=== PATIENT | male | born 1950 | race Caucasian/White ===

== ENCOUNTER → 2017-03-12 | Outpatient (CLI) | payer MEDICARE ==
[~2017-03-12] MED LIST: ACET-1770 PR; ALBU1.25 NEB; ALLO100T30 PO; ASPI-515 PO; ASPI-621 PO; ATOR10TA PO; ATOR10TA9 PO; CARV6.252 PO; CHOL500014 PO; CHOL500015 PO; DAPT500V6 IV; DIAZ5TAB PO; DIAZ5TAB4 PO; DOCU-30 PO; DOXY100T PO; ENAL2.5T32 IV; ENOX100S5 SQ; ENOX80SY5 SQ; FENT1PAT75 TD; FURO-92 PO; FURO40TA6 PO; GABA100C PO; GABA300C10 PO; GABA600T2 PO; HYDR-3138 PO; INSU100C SQ-INSULIN; INSU100C5 SQ-INSULIN; INSU100I11 SQ; INSU100I13 SQ; INSU100I29 SQ; INSU100V5 SQ-INSULIN; INSU100V8 SQ; LABE5VIA13 IV; LINA5TAB PO; LORA-446 PO; LORA2ORA2 IV; LORA2TAB99 PO; MAGN400T26 PO; MAGN400T36 PO; MAGNESIUM PO; MAGNESSIUM PO; METALAZONE PO; METH750T87 PO; METO5TAB5 PO; METR500T PO; MINO10TA PO; MORP-52 PO; MORP15TA PO; MORP15TA3 PO; MORP1VIA2 IV; NICO1PAT5 TD; OXYC-229 PO; OXYC10TA6 PO; OXYC1TAB9 PO; OXYC30TA66 PO; OXYC5TAB3 PO; PANT40TA3 PO; PANT40TA5 PO; PANT40VI IV; PHOS250T PO; PIPE3.375 IV; POTA10TA PO; POTA10TA11 PO; POTA20PA8 PO; PRAM0.5T5 PO; PRAM1TAB PO; PRAM1TAB5 PO; PRAMIPEXOLE PO; PRED5TAB PO; RIVA10TA PO; SPIR100T2 PO; SULF1TAB24 PO; VALS160T3 PO; WARF10TA6 PO-COUM; WARF3TAB7 PO; WARF3TAB7 PO-COUM; WARF4TAB7 PO; WARF6TAB PO; WARF6TAB7 PO; WARFARIN PO; [UNRECOGNIZED DRUG - CODE] PO; [UNRECOGNIZED DRUG - REMARK]; [UNRECOGNIZED DRUG - REMARK] PO
== END | disposition home or self-care (01) ==
LOC: CVU 14:08
PROVIDERS: ATTEND Internal Medicine Infectious Disease
DX: I72.4 Aneurysm of artery of lower extremity (principal); I77.1 Stricture of artery; T84.7XXA Infection and inflammatory reaction due to other internal orthopedic prosthetic devices, implants and grafts, initial encounter; E11.9 Type 2 diabetes mellitus without complications; E78.5 Hyperlipidemia, unspecified; I25.10 Atherosclerotic heart disease of native coronary artery without angina pectoris; Z72.0 Tobacco use; Z85.828 Personal history of other malignant neoplasm of skin
CPT/HCPCS: 93922; 93925

== ENCOUNTER 2017-04-22 22:04 | Emergency (ER) | payer MEDICARE ==
[~2017-04-22] VITALS: Ht 172.7 cm; Wt 103.0 kg
[~2017-04-22 22:04] MED LIST changes: -CHOL500014 PO; +CHOL500045 PO; +DOCU-131 PO; -DOCU-30 PO; -HYDR-3138 PO; +HYDR-3237 PO; +NICO1PAT16 TD; -NICO1PAT5 TD; -OXYC-229 PO; +OXYC-307 PO; +POTA20PA25 PO; -POTA20PA8 PO
[2017-04-22 22:11] VITALS: BP 137/80
== END 2017-04-22 23:39 | disposition home or self-care (01) ==
LOC: ED 23:30
DX: T81.31XA Disruption of external operation (surgical) wound, not elsewhere classified, initial encounter (principal); I25.10 Atherosclerotic heart disease of native coronary artery without angina pectoris; I25.2 Old myocardial infarction; I11.0 Hypertensive heart disease with heart failure; I50.9 Heart failure, unspecified; Y92.89 Other specified places as the place of occurrence of the external cause
CPT/HCPCS: 99282

== ENCOUNTER 2017-05-13 12:16 | Emergency (ER) | payer MEDICARE ==
[~2017-05-13] VITALS: Ht 172.7 cm; Wt 108.0 kg
[2017-05-13] MEDS ORDERED: SODIUM CHLORIDE FLUSH 10ML SYR IVF ONE (13:00)
[2017-05-13] MEDS ORDERED: MECLIZINE CHEWABLE 25 MG TAB PO ONE (13:00)
[2017-05-13] MEDS ORDERED: SODIUM CHLORIDE 0.9% 1,000ML IVBOLUS ONE (13:00)
[2017-05-13 13:19] LABS: HEMATOCRIT 41.9 % (39.2-51.8); HEMOGLOBIN 14.3 g/dL (13.7-18.0); WHITE BLOOD COUNT 7.7 x10^3/uL (3.4-10)
[2017-05-13] MEDS ORDERED: MECLIZINE CHEWABLE 25 MG TAB ONE (13:19)
[2017-05-13 13:32] LABS: ASPARTATE AMINO TRANSFERASE 15 U/L (15-37); BLOOD UREA NITROGEN 30 mg/dL (7-18)
[2017-05-13 15:42] VITALS: BP 140/86
== END 2017-05-13 15:44 | disposition home or self-care (01) ==
LOC: ED 14:35
DX: R42 Dizziness and giddiness (principal); R60.0 Localized edema; I13.0 Hypertensive heart and chronic kidney disease with heart failure and stage 1 through stage 4 chronic kidney disease, or unspecified chronic kidney disease; E11.22 Type 2 diabetes mellitus with diabetic chronic kidney disease; N18.9 Chronic kidney disease, unspecified; I50.9 Heart failure, unspecified; E78.5 Hyperlipidemia, unspecified; I25.2 Old myocardial infarction; I25.10 Atherosclerotic heart disease of native coronary artery without angina pectoris; F17.200 Nicotine dependence, unspecified, uncomplicated; Z85.51 Personal history of malignant neoplasm of bladder; Z79.4 Long term (current) use of insulin
CPT/HCPCS: 36415; 70450; 71010; 80053; 83880; 85025; 93005; 96360; 96361; 99285; J7030

== ENCOUNTER 2017-05-23 19:51 | Emergency (ER) | payer MEDICARE ==
[~2017-05-23] VITALS: Ht 172.7 cm; Wt 106.0 kg
[2017-05-23] MEDS ORDERED: INSU100V12 SQ (20:33)
[2017-05-23 21:08] VITALS: BP 151/84
== END 2017-05-23 21:41 | disposition home or self-care (01) ==
LOC: ED 21:00
DX: S46.011A Strain of muscle(s) and tendon(s) of the rotator cuff of right shoulder, initial encounter (principal); E78.5 Hyperlipidemia, unspecified; E66.9 Obesity, unspecified; I11.0 Hypertensive heart disease with heart failure; I50.9 Heart failure, unspecified; X50.1XXA Overexertion from prolonged static or awkward postures, initial encounter; Y93.H3 Activity, building and construction; Y92.89 Other specified places as the place of occurrence of the external cause; Y99.9 Unspecified external cause status; I25.2 Old myocardial infarction
CPT/HCPCS: 29105; 99284

== ENCOUNTER 2017-08-20 15:08 | Emergency (ER) | payer MEDICARE ==
[~2017-08-20] VITALS: Ht 172.7 cm; Wt 104.5 kg
[~2017-08-20 15:08] MED LIST changes: +INSU100V12 SQ; +NICO-487 TD; -NICO1PAT16 TD
[2017-08-20] MEDS ORDERED: SODIUM CHLORIDE FLUSH 10ML SYR IVF ONE (15:30)
[2017-08-20] MEDS ORDERED: CHOL2000 PO (15:59)
[2017-08-20] MEDS ORDERED: BUME2TAB PO (15:59)
[2017-08-20] MEDS ORDERED: LISI2.5T PO (15:59)
[2017-08-20] MEDS ORDERED: DIAZ5TAB4 PO (15:59)
[2017-08-20] MEDS ORDERED: MAGN84TA6 PO (15:59)
[2017-08-20 16:06] LABS: BLOOD UREA NITROGEN 74 mg/dL (7-18)
[2017-08-20 16:09] LABS: ASPARTATE AMINO TRANSFERASE 21 U/L (15-37)
[2017-08-20 16:29] LABS: HEMATOCRIT 44.7 % (39.2-51.8); HEMOGLOBIN 14.9 g/dL (13.7-18.0); WHITE BLOOD COUNT 8.1 x10^3/uL (3.4-10)
[2017-08-20] MEDS ORDERED: DIAZEPAM 5 MG TABLET PO ONE (18:00)
[2017-08-20] MEDS ORDERED: DIAZEPAM 5 MG TABLET ONE (18:06)
[2017-08-20 20:26] VITALS: BP 104/79
== END 2017-08-20 20:28 | disposition home or self-care (01) ==
LOC: ED 17:20
DX: M54.41 Lumbago with sciatica, right side (principal); E78.5 Hyperlipidemia, unspecified; E66.9 Obesity, unspecified; I25.10 Atherosclerotic heart disease of native coronary artery without angina pectoris; E11.40 Type 2 diabetes mellitus with diabetic neuropathy, unspecified; I11.0 Hypertensive heart disease with heart failure; I50.9 Heart failure, unspecified; Z87.891 Personal history of nicotine dependence; Z98.890 Other specified postprocedural states
CPT/HCPCS: 36415; 72110; 72148; 80053; 85025; 85610; 99285

== ENCOUNTER 2017-12-12 10:36 | Emergency (ER) | payer MEDICARE ==
[~2017-12-12] VITALS: Ht 172.7 cm; Wt 103.1 kg
[~2017-12-12 10:36] MED LIST changes: +BUME2TAB PO; +CHOL2000 PO; +LISI2.5T PO; +MAGN84TA6 PO; +WARF3TAB52 PO; +WARF3TAB52 PO-COUM; -WARF3TAB7 PO; -WARF3TAB7 PO-COUM
[2017-12-12 10:38] VITALS: BP 163/93
== END 2017-12-12 13:18 | disposition home or self-care (01) ==
LOC: ED 12:50
DX: I80.01 Phlebitis and thrombophlebitis of superficial vessels of right lower extremity (principal); I73.9 Peripheral vascular disease, unspecified; E11.9 Type 2 diabetes mellitus without complications; E78.5 Hyperlipidemia, unspecified; I25.10 Atherosclerotic heart disease of native coronary artery without angina pectoris; I25.2 Old myocardial infarction; I50.9 Heart failure, unspecified; I11.0 Hypertensive heart disease with heart failure; Z85.51 Personal history of malignant neoplasm of bladder; Z86.718 Personal history of other venous thrombosis and embolism
CPT/HCPCS: 99284

== ENCOUNTER 2017-12-20 15:55 | Inpatient (IN) | payer MEDICARE ==
[~2017-12-20] VITALS: Ht 172.7 cm; Wt 102.5 kg
[~2017-12-20 15:55] MED LIST changes: +WARF10TA43 PO-COUM; -WARF10TA6 PO-COUM; +WARF4TAB65 PO; -WARF4TAB7 PO; +WARF6TAB47 PO; -WARF6TAB7 PO; +WARFARIN 3 MG TABLET PO-COUM ONE
[2017-12-20] MEDS ORDERED: MORPHINE SULFATE 4 MG/ML, 1ML ONE (16:51)
[2017-12-20] MEDS ORDERED: ONDANSETRON ODT 4 MG ONE (16:51)
[2017-12-20] MEDS ORDERED: MORPHINE SULFATE 4 MG/ML, 1ML IVPush PRN (17:00)
[2017-12-20] MEDS ORDERED: ONDANSETRON ODT 4 MG PO ONE (17:00)
[2017-12-20] MEDS ORDERED: CHOL100012 PO (17:02)
[2017-12-20] MEDS ORDERED: WARF3TAB52 PO (17:02)
[2017-12-20] MEDS ORDERED: INSU100I28 SQ (17:02)
[2017-12-20] MEDS ORDERED: LISI2.5T PO (17:02)
[2017-12-20 17:07] LABS: BASOPHILS # (AUTO) 0.12 x10^3/uL (0-0.1); BASOPHILS % (AUTO) 1 % (0-1); EOSINOPHILS # (AUTO) 0.24 x10^3/uL (0-0.4); EOSINOPHILS % (AUTO) 3 % (1-7); LYMPHOCYTES # (AUTO) 2.19 x10^3/uL (1-3.4); LYMPHOCYTES % (AUTO) 25 % (22-44); MD NO; MEAN CORPUSCULAR HEMOGLOBIN 30.8 pg (27.5-34.5); MEAN CORPUSCULAR VOLUME 93.2 fL (81-97); MEAN PLATELET VOLUME 8.9 fL (7.4-10.4); MONOCYTES # (AUTO) 0.74 x10^3/uL (0.2-0.8); MONOCYTES % (AUTO) 8 % (2-9); NEUTROPHILS # (AUTO) 5.67 x10^3/uL (1.8-6.8); NEUTROPHILS % (AUTO) 63 % (42-75); PLATELET COUNT 183 x10^3/uL (130-400); RED BLOOD COUNT 4.72 x10^6/uL (4.38-5.82); RED CELL DISTRIBUTION WIDTH 17.4 % (9.4-14.8)
[2017-12-20 17:15] LABS: INTERNATIONAL NORMALIZED RATIO 2.45 (0.93-1.1); PROTHROMBIN TIME 24.8 Seconds (9.6-11.5)
[2017-12-20 17:17] LABS: ALANINE AMINOTRANSFERASE 18 U/L (12-78); ALBUMIN 3.5 g/dL (3.4-5.0); ANION GAP 7 mmol/L (5-15); CALCIUM 9.1 mg/dL (8.5-10.1); CHLORIDE 103 mmol/L (98-107); CREATININE 3.18 mg/dL (0.7-1.3)
[2017-12-20 17:22] LABS: ALKALINE PHOSPHATASE 86 U/L (45-117); BILIRUBIN,TOTAL 0.3 mg/dL (0.2-1.0); TROPONIN I < 0.015 ng/mL (0.000-0.045)
[2017-12-20] MEDS ORDERED: SODIUM BICARB 8.4%, 50ML SYRINGE IVPush ONE (18:00)
[2017-12-20] MEDS ORDERED: INSULIN REGULAR 100 UNITS/ML, 3ML VIAL IVPush ONE ×2 (18:00→21:00)
[2017-12-20] MEDS ORDERED: SODIUM POLY SULFONATE UDC 15 GM/60 ML PO ONE (18:00)
[2017-12-20] MEDS ORDERED: HYDROmorphone 1 MG/ML, 1ML IV PRN (18:00)
[2017-12-20] MEDS ORDERED: DEXTROSE 50%, 50ML SYRINGE IVPush ONE ×2 (18:00→21:00)
[2017-12-20] MEDS ORDERED: SODIUM BICARB 8.4%, 50ML SYRINGE ONE (18:07)
[2017-12-20] MEDS ORDERED: SODIUM POLYSTYRENE SULFONATE ORAL SUSP ONE (18:07)
[2017-12-20] MEDS ORDERED: DEXTROSE 50%, 50ML SYRINGE ONE (18:07)
[2017-12-20] MEDS ORDERED: HYDROmorphone 2 MG/ML, 1ML ONE (18:08)
[2017-12-20] MEDS ORDERED: INSULIN REGULAR 100 UNITS/ML, 3ML VIAL ONE (18:08)
[2017-12-20 19:11] VITALS: BP 108/52
[2017-12-20] MEDS ORDERED: DIAZEPAM 5 MG TABLET PO PRN (21:00)
[2017-12-20] MEDS ORDERED: POLYETHYLENE GLYCOL 17 GM PACKET PO PRN (21:00)
[2017-12-20] MEDS ORDERED: LABETALOL 5MG/ML, 20ML IVPush PRN (21:00)
[2017-12-20] MEDS ORDERED: CALCIUM GLUCONATE 4.6 MEQ/10 ML IVPush ONE (21:00)
[2017-12-20] MEDS ORDERED: PHARMACY MAY ADJ FOR RENAL FX MC PRN (21:00)
[2017-12-20] MEDS ORDERED: ONDANSETRON 2MG/ML, 2ML IVPush PRN (21:00)
[2017-12-20] MEDS ORDERED: WARFARIN 2 MG TABLET PO-COUM ONE (21:30)
[2017-12-20] MEDS ORDERED: WARFARIN 3 MG TABLET PO-COUM ONE (21:30)
[2017-12-20] MEDS ORDERED: WARFARIN 2.5 MG TABLET PO-COUM ONE (21:30)
[2017-12-20] MEDS ORDERED: GLUCAGON 1 MG IM PRN (22:00)
[2017-12-20] MEDS ORDERED: DEXTROSE 50%, 50ML SYRINGE IVPush PRN (22:00)
[2017-12-20] MEDS ORDERED: DEXTROSE 4 GM TAB.CHEW PO PRN (22:00)
[2017-12-20] MEDS ORDERED: ALBUTEROL/IPRATROPIUM 2.5MG/0.5MG, 3 ML NPPB PRN (22:30)
[2017-12-20] MEDS: HYDROmorphone 2 MG/ML, 1ML IVPush PRN (22:45)
[2017-12-20] MEDS: CARVEDILOL 6.25 MG TABLET PO SCH (23:00)
[2017-12-20] MEDS: SODIUM CHLORIDE 0.9% 1,000 ML IV SCH (23:03)
[2017-12-20] MEDS: PANTOPROZOLE 40MG TABLET PO SCH (23:12)
[2017-12-20] MEDS: ALLOPURINOL 100 MG TABLET PO SCH (23:14)
[2017-12-20] MEDS: ATORVASTATIN 10 MG TABLET PO SCH (23:16)
[2017-12-20] MEDS: INSULIN LISPRO 100 UNITS/ML, PEN SQ-INSULIN SCH (23:23)
[2017-12-20] MEDS: SODIUM CHLORIDE FLUSH 10ML SYR IVF SCH (23:55)
[2017-12-21] MEDS ORDERED: CALCIUM GLUCONATE 4.6 MEQ in SODIUM CHLORIDE 0.9% 50 ML IV ONE (00:30)
[2017-12-21] MEDS: HYDROmorphone 2 MG/ML, 1ML IVPush PRN ×2 (00:38→08:28)
[2017-12-21 01:39] LABS: BASOPHILS # (AUTO) 0.16 x10^3/uL (0-0.1); BASOPHILS % (AUTO) 1 % (0-1); EOSINOPHILS # (AUTO) 0.28 x10^3/uL (0-0.4); EOSINOPHILS % (AUTO) 2 % (1-7); LYMPHOCYTES # (AUTO) 4.24 x10^3/uL (1-3.4); LYMPHOCYTES % (AUTO) 32 % (22-44); MD NO; MEAN CORPUSCULAR HEMOGLOBIN 31.2 pg (27.5-34.5); MEAN CORPUSCULAR HGB CONC 32.9 g/dL (33.2-36.2); MEAN CORPUSCULAR VOLUME 94.9 fL (81-97); MEAN PLATELET VOLUME 8.8 fL (7.4-10.4); MONOCYTES # (AUTO) 1.24 x10^3/uL (0.2-0.8); MONOCYTES % (AUTO) 9 % (2-9); NEUTROPHILS # (AUTO) 7.26 x10^3/uL (1.8-6.8); NEUTROPHILS % (AUTO) 55 % (42-75); PLATELET COUNT 196 x10^3/uL (130-400); RED BLOOD COUNT 4.91 x10^6/uL (4.38-5.82); RED CELL DISTRIBUTION WIDTH 17.8 % (9.4-14.8)
[2017-12-21 01:42] LABS: INTERNATIONAL NORMALIZED RATIO 2.43 (0.93-1.1); PROTHROMBIN TIME 24.6 Seconds (9.6-11.5)
[2017-12-21 01:48] LABS: ALBUMIN 3.5 g/dL (3.4-5.0); ANION GAP 6 mmol/L (5-15); CALCIUM 9.7 mg/dL (8.5-10.1); CHLORIDE 106 mmol/L (98-107)
[2017-12-21 01:51] LABS: ALANINE AMINOTRANSFERASE 19 U/L (12-78); ALKALINE PHOSPHATASE 86 U/L (45-117); BILIRUBIN,TOTAL 0.4 mg/dL (0.2-1.0); TOTAL PROTEIN 7.1 g/dL (6.4-8.2)
[2017-12-21 03:21] VITALS: BP 143/77
[2017-12-21 04:46] VITALS: BP 100/60
[2017-12-21] MEDS: INSULIN LISPRO 100 UNITS/ML, PEN SQ-INSULIN SCH ×4 (07:00→21:00)
[2017-12-21] MEDS: SODIUM CHLORIDE FLUSH 10ML SYR IVF SCH ×2 (08:01→20:15)
[2017-12-21 08:06] VITALS: BP 112/73
[2017-12-21] MEDS: SULFAMETH./TRIMETHOPRIM DS 800MG/160MG TABLET PO SCH (08:16)
[2017-12-21] MEDS: SODIUM CHLORIDE 0.9% 1,000 ML IV SCH ×2 (08:16→20:14)
[2017-12-21] MEDS: PANTOPROZOLE 40MG TABLET PO SCH ×2 (08:16→20:14)
[2017-12-21] MEDS: CARVEDILOL 6.25 MG TABLET PO SCH ×2 (08:16→20:16)
[2017-12-21] MEDS: PRAMIPEXOLE 0.5MG TABLET PO SCH (08:16)
[2017-12-21] MEDS ORDERED: INSULIN DETEMIR 100 UNITS/ML, PEN SQ-INSULIN SCH ×2 (09:00)
[2017-12-21] MEDS ORDERED: INSULIN GLARGINE 100 UNITS/ML, PEN SQ-INSULIN SCH (09:00)
[2017-12-21 12:16] VITALS: BP 110/73
[2017-12-21 14:02] LABS: MICROSCOPIC NOT IND
[2017-12-21] MEDS ORDERED: WARFARIN 3 MG TABLET PO-COUM SCH (18:00)
[2017-12-21 18:46] VITALS: BP 148/81
[2017-12-21] MEDS: ALLOPURINOL 100 MG TABLET PO SCH (20:13)
[2017-12-21] MEDS: ATORVASTATIN 10 MG TABLET PO SCH (20:13)
[2017-12-21] MEDS: OXYcodone/APAP 10/325MG TABLET PO PRN (20:13)
[2017-12-22 01:35] VITALS: BP 125/73
[2017-12-22] MEDS: OXYcodone/APAP 10/325MG TABLET PO PRN ×2 (02:46→19:22)
[2017-12-22 05:23] LABS: CHLORIDE 107 mmol/L (98-107)
[2017-12-22 05:26] LABS: BASOPHILS # (AUTO) 0.06 x10^3/uL (0-0.1); BASOPHILS % (AUTO) 1 % (0-1); EOSINOPHILS # (AUTO) 0.16 x10^3/uL (0-0.4); EOSINOPHILS % (AUTO) 3 % (1-7); LYMPHOCYTES % (AUTO) 25 % (22-44); MD NO; MEAN CORPUSCULAR HEMOGLOBIN 31.5 pg (27.5-34.5); MEAN CORPUSCULAR HGB CONC 33.3 g/dL (33.2-36.2); MEAN CORPUSCULAR VOLUME 94.4 fL (81-97); MEAN PLATELET VOLUME 9.1 fL (7.4-10.4); MONOCYTES # (AUTO) 0.61 x10^3/uL (0.2-0.8); MONOCYTES % (AUTO) 9 % (2-9); NEUTROPHILS # (AUTO) 4.11 x10^3/uL (1.8-6.8); NEUTROPHILS % (AUTO) 63 % (42-75); PLATELET COUNT 148 x10^3/uL (130-400); RED CELL DISTRIBUTION WIDTH 17.6 % (9.4-14.8)
[2017-12-22 05:35] LABS: ALANINE AMINOTRANSFERASE 18 U/L (12-78); ALBUMIN 3.2 g/dL (3.4-5.0); ALKALINE PHOSPHATASE 83 U/L (45-117); ANION GAP 6 mmol/L (5-15); BILIRUBIN,TOTAL 0.5 mg/dL (0.2-1.0); CALCIUM 9.2 mg/dL (8.5-10.1); CREATININE 2.03 mg/dL (0.7-1.3); TOTAL PROTEIN 6.6 g/dL (6.4-8.2)
[2017-12-22] MEDS: SODIUM CHLORIDE 0.9% 1,000 ML IV SCH (05:43)
[2017-12-22 06:36] VITALS: BP 139/79
[2017-12-22] MEDS: INSULIN LISPRO 100 UNITS/ML, PEN SQ-INSULIN SCH ×4 (07:00→20:32)
[2017-12-22 07:45] LABS: INTERNATIONAL NORMALIZED RATIO 2.46 (0.93-1.1); PROTHROMBIN TIME 25.1 Seconds (9.6-11.5)
[2017-12-22] MEDS: SODIUM CHLORIDE FLUSH 10ML SYR IVF SCH ×2 (08:03→20:32)
[2017-12-22] MEDS: CARVEDILOL 6.25 MG TABLET PO SCH ×2 (08:04→20:32)
[2017-12-22] MEDS: SULFAMETH./TRIMETHOPRIM DS 800MG/160MG TABLET PO SCH (08:04)
[2017-12-22] MEDS: PRAMIPEXOLE 0.5MG TABLET PO SCH (08:04)
[2017-12-22] MEDS: PANTOPROZOLE 40MG TABLET PO SCH ×2 (08:04→20:32)
[2017-12-22] MEDS: INSULIN GLARGINE 100 UNITS/ML, PEN SQ-INSULIN SCH (08:05)
[2017-12-22] MEDS ORDERED: MAGNESIUM SULFATE PMX 2GM/50ML 50 ML IV ONE (09:00)
[2017-12-22 14:38] VITALS: BP 161/94
[2017-12-22] MEDS ORDERED: WARFARIN 3 MG TABLET PO-COUM ONE (18:00)
[2017-12-22 20:06] VITALS: BP 163/93
[2017-12-22] MEDS: ATORVASTATIN 10 MG TABLET PO SCH (20:31)
[2017-12-22] MEDS: ALLOPURINOL 100 MG TABLET PO SCH (20:32)
[2017-12-22] MEDS ORDERED: SODIUM CHLORIDE 0.9% 1,000 ML IV SCH ×2 (20:46)
[2017-12-23 02:16] VITALS: BP 162/98
[2017-12-23 05:23] LABS: INTERNATIONAL NORMALIZED RATIO 2.54 (0.93-1.1); PROTHROMBIN TIME 25.9 Seconds (9.6-11.5)
[2017-12-23 05:28] LABS: ALBUMIN 3.5 g/dL (3.4-5.0); ANION GAP 8 mmol/L (5-15); CALCIUM 9.5 mg/dL (8.5-10.1); CHLORIDE 104 mmol/L (98-107)
[2017-12-23 05:33] LABS: ALANINE AMINOTRANSFERASE 19 U/L (12-78); ALKALINE PHOSPHATASE 90 U/L (45-117); BILIRUBIN,TOTAL 0.8 mg/dL (0.2-1.0); CREATININE 1.68 mg/dL (0.7-1.3)
[2017-12-23 06:27] VITALS: BP 153/82
[2017-12-23] MEDS: INSULIN GLARGINE 100 UNITS/ML, PEN SQ-INSULIN SCH (08:14)
[2017-12-23] MEDS: INSULIN LISPRO 100 UNITS/ML, PEN SQ-INSULIN SCH ×2 (08:14→11:00)
[2017-12-23] MEDS: PRAMIPEXOLE 0.5MG TABLET PO SCH (08:16)
[2017-12-23] MEDS: SULFAMETH./TRIMETHOPRIM DS 800MG/160MG TABLET PO SCH (08:17)
[2017-12-23] MEDS: PANTOPROZOLE 40MG TABLET PO SCH (08:17)
[2017-12-23] MEDS: CARVEDILOL 6.25 MG TABLET PO SCH (08:17)
[2017-12-23] MEDS ORDERED: POLY17PO5 PO (08:59)
[2017-12-23] MEDS ORDERED: ALLO100T30 PO (08:59)
[2017-12-23] MEDS ORDERED: OXYC1TAB9 PO (08:59)
[2017-12-23] MEDS ORDERED: CARVEDILOL 6.25 MG TABLET PO SCH ×2 (09:00→21:00)
[2017-12-23] MEDS ORDERED: MAGNESIUM CITRATE 300ML ORAL SOL PO PRN (09:00)
[2017-12-23] MEDS ORDERED: CARVEDILOL 6.25 MG TABLET PO ONE (10:00)
[2017-12-23] MEDS ORDERED: WARFARIN 3 MG TABLET PO-COUM ONE (18:00)
== END 2017-12-23 12:32 | DRG 299 ==
LOC: ED 18:23 → EDIP 18:25 → 4NOR 18:56 → 4WST 22:42
PROVIDERS: ADMIT Internal Medicine; ATTEND Internal Medicine
DX: E11.51 Type 2 diabetes mellitus with diabetic peripheral angiopathy without gangrene (principal); N17.0 Acute kidney failure with tubular necrosis; D68.59 Other primary thrombophilia; E11.21 Type 2 diabetes mellitus with diabetic nephropathy; E11.42 Type 2 diabetes mellitus with diabetic polyneuropathy; E11.40 Type 2 diabetes mellitus with diabetic neuropathy, unspecified; E11.22 Type 2 diabetes mellitus with diabetic chronic kidney disease; N18.4 Chronic kidney disease, stage 4 (severe); E87.1 Hypo-osmolality and hyponatremia; I50.32 Chronic diastolic (congestive) heart failure; I13.0 Hypertensive heart and chronic kidney disease with heart failure and stage 1 through stage 4 chronic kidney disease, or unspecified chronic kidney disease; D63.8 Anemia in other chronic diseases classified elsewhere; G25.81 Restless legs syndrome; J44.9 Chronic obstructive pulmonary disease, unspecified; E11.65 Type 2 diabetes mellitus with hyperglycemia; E66.01 Morbid (severe) obesity due to excess calories; E78.5 Hyperlipidemia, unspecified; E83.39 Other disorders of phosphorus metabolism; F17.200 Nicotine dependence, unspecified, uncomplicated; G47.33 Obstructive sleep apnea (adult) (pediatric); G89.4 Chronic pain syndrome; I25.10 Atherosclerotic heart disease of native coronary artery without angina pectoris; I25.2 Old myocardial infarction; I71.4 Abdominal aortic aneurysm, without rupture; K21.9 Gastro-esophageal reflux disease without esophagitis; M21.372 Foot drop, left foot; M47.26 Other spondylosis with radiculopathy, lumbar region; Z66 Do not resuscitate; M48.061 Spinal stenosis, lumbar region without neurogenic claudication; Z79.2 Long term (current) use of antibiotics; Z79.4 Long term (current) use of insulin; Z85.51 Personal history of malignant neoplasm of bladder; Z86.72 Personal history of thrombophlebitis; Z86.79 Personal history of other diseases of the circulatory system; Z90.5 Acquired absence of kidney; Z96.642 Presence of left artificial hip joint; Z96.653 Presence of artificial knee joint, bilateral; Z99.81 Dependence on supplemental oxygen; Z79.899 Other long term (current) drug therapy; Z68.34 Body mass index [BMI] 34.0-34.9, adult
CPT/HCPCS: 36415; 71045; 72148; 80053; 81003; 82962; 83735; 83880; 84100; 84132; 84484; 84550; 85025; 85610; 85730; 93005; 96374; 96375; J1170; J1815; Q0162; J0610; J3475; J7030

== ENCOUNTER 2018-07-23 14:29 | Emergency (ER) | payer MEDICARE ==
[~2018-07-23] VITALS: Ht 172.7 cm; Wt 98.7 kg
[~2018-07-23 14:29] MED LIST changes: +CHOL100012 PO; +INSU100I28 SQ; +OXYC-432 PO; -OXYC1TAB9 PO; +POLY17PO5 PO; -SPIR100T2 PO; +SPIR100T4 PO; -WARFARIN 3 MG TABLET PO-COUM ONE
[2018-07-23 15:15] LABS: BASOPHILS # (AUTO) 0.07 x10^3/uL (0-0.1); BASOPHILS % (AUTO) 1 % (0-1); EOSINOPHILS # (AUTO) 0.49 x10^3/uL (0-0.4); EOSINOPHILS % (AUTO) 6 % (1-7); LYMPHOCYTES # (AUTO) 2.05 x10^3/uL (1-3.4); LYMPHOCYTES % (AUTO) 26 % (22-44); MD NO; MEAN CORPUSCULAR HEMOGLOBIN 28.6 pg (27.5-34.5); MEAN CORPUSCULAR HGB CONC 33.1 g/dL (33.2-36.2); MEAN CORPUSCULAR VOLUME 86.5 fL (81-97); MEAN PLATELET VOLUME 8.3 fL (7.4-10.4); MONOCYTES # (AUTO) 0.64 x10^3/uL (0.2-0.8); MONOCYTES % (AUTO) 8 % (2-9); NEUTROPHILS # (AUTO) 4.65 x10^3/uL (1.8-6.8); NEUTROPHILS % (AUTO) 59 % (42-75); PLATELET COUNT 176 x10^3/uL (130-400); RED BLOOD COUNT 4.78 x10^6/uL (4.38-5.82); RED CELL DISTRIBUTION WIDTH 20.1 % (9.4-14.8)
[2018-07-23 15:25] LABS: ALBUMIN 3.3 g/dL (3.4-5.0); ANION GAP 4 mmol/L (5-15); CALCIUM 8.7 mg/dL (8.5-10.1); CHLORIDE 100 mmol/L (98-107); CREATININE 1.79 mg/dL (0.7-1.3)
[2018-07-23 15:27] LABS: INTERNATIONAL NORMALIZED RATIO 1.87 (0.93-1.1); PROTHROMBIN TIME 19.4 Seconds (9.6-11.5)
[2018-07-23 17:23] VITALS: BP 147/75
== END 2018-07-23 17:19 | disposition home or self-care (01) ==
LOC: ED 16:00
DX: M79.651 Pain in right thigh (principal); N28.9 Disorder of kidney and ureter, unspecified; I73.9 Peripheral vascular disease, unspecified; E78.5 Hyperlipidemia, unspecified; E11.9 Type 2 diabetes mellitus without complications; I50.9 Heart failure, unspecified; I11.0 Hypertensive heart disease with heart failure; I25.10 Atherosclerotic heart disease of native coronary artery without angina pectoris; I25.2 Old myocardial infarction; E66.9 Obesity, unspecified
CPT/HCPCS: 36415; 80048; 82040; 85025; 85610; 93922; 93925; 99284

== ENCOUNTER 2019-09-18 13:14 | Inpatient (IN) | payer MEDICARE ==
[~2019-09-18] VITALS: Ht 172.7 cm; Wt 100.6 kg
[~2019-09-18 13:14] MED LIST changes: -ASPI-621 PO; +ASPI81TA45 PO; -BUME2TAB PO; +BUME2TAB3 PO; -GABA600T2 PO; +GABA600T7 PO; +MORP-29 PO; -MORP15TA3 PO; -RIVA10TA PO; +RIVA10TA2 PO
--- NOTE | 2019-09-18 13:32 | NUR ---
EKG performed in triage, patient waiting in lobby with his daughter.
--- NOTE | 2019-09-18 13:51 | NUR ---
INVENTORY CONTROL MANAGER: PT TO ROOM FROM LOBBY VIA
--- NOTE | 2019-09-18 14:07 | NUR ---
This is a 69yo male coming in for right sided chest discomfort at site of bypass site with reported swelling; lumbar back pain x3 weeks; bilateral lower extremity swelling x2 months worsening over the last two weeks. Patient adds increasing generalized weakness and lethargy. Patient has extensive cardiac hx, with recent femoral bypass surgery. Patient denies CP at this time, states mild SOB, at 88& on RA, placed on 2.5L NC, up to 94%. Patient placed on hall monitor, Irregular rhythm noted with multiple PVCs and prolonged QT. All monitoring in place, call light in reach, needs addressed.
[2019-09-18] MEDS ORDERED: PRAMIPEXOLE PO ×2 (14:24→14:28)
[2019-09-18] MEDS ORDERED: PANT40TA5 PO (14:25)
[2019-09-18] MEDS ORDERED: BUME2TAB3 PO (14:29)
--- NOTE | 2019-09-18 14:30 | NUR ---
PIV PLACED, LABS DRAWN, FIRST SET OF CULTURES DRAWN
[2019-09-18] MEDS ORDERED: LISI-167 PO (14:35)
[2019-09-18] MEDS ORDERED: CITA20TA9 PO (14:35)
[2019-09-18] MEDS ORDERED: MORP15TA PO (14:36)
[2019-09-18] MEDS ORDERED: LEVOTHYROXINE PO (14:36)
[2019-09-18] MEDS ORDERED: TAMS-11 PO (14:37)
--- NOTE | 2019-09-18 15:35 | NUR ---
XRAY TO ROOM
--- NOTE | 2019-09-18 15:43 | NUR ---
[employer]URSING [employer] TO ROOM
[2019-09-18 15:56] LABS: BASOPHILS # (AUTO) 0.04 x10^3/uL (0-0.1); BASOPHILS % (AUTO) 1 % (0-1); EOSINOPHILS % (AUTO) 3 % (1-7); LYMPHOCYTES # (AUTO) 1.52 x10^3/uL (1-3.4); LYMPHOCYTES % (AUTO) 24 % (22-44); MD NO; MEAN CORPUSCULAR HEMOGLOBIN 23.2 pg (27.5-34.5); MEAN CORPUSCULAR HGB CONC 30.7 g/dL (33.2-36.2); MEAN CORPUSCULAR VOLUME 75.7 fL (81-97); MEAN PLATELET VOLUME 8.4 fL (7.4-10.4); MONOCYTES % (AUTO) 10 % (2-9); NEUTROPHILS # (AUTO) 3.95 x10^3/uL (1.8-6.8); NEUTROPHILS % (AUTO) 63 % (42-75); PLATELET COUNT 228 x10^3/uL (130-400); RED BLOOD COUNT 4.61 x10^6/uL (4.38-5.82); RED CELL DISTRIBUTION WIDTH 20.5 % (9.4-14.8)
[2019-09-18] MEDS ORDERED: SODIUM CHLORIDE FLUSH 10ML SYR IVF ONE (16:00)
[2019-09-18 16:07] LABS: ALBUMIN 2.5 g/dL (3.4-5.0); ANION GAP 6 mmol/L (5-15); CALCIUM 8.8 mg/dL (8.5-10.1); CHLORIDE 108 mmol/L (98-107); INTERNATIONAL NORMALIZED RATIO 1.74 (0.93-1.1); PROTHROMBIN TIME 18.5 Seconds (9.6-11.5)
[2019-09-18 16:13] LABS: ALANINE AMINOTRANSFERASE 12 U/L (12-78); ALKALINE PHOSPHATASE 114 U/L (45-117); BILIRUBIN,TOTAL 0.3 mg/dL (0.2-1.0); TOTAL PROTEIN 6.2 g/dL (6.4-8.2); TROPONIN I < 0.015 ng/mL (0.000-0.045)
[2019-09-18] MEDS ORDERED: MORPHINE SULFATE 4 MG/ML, 1ML ONE ×2 (16:16→16:35)
[2019-09-18] MEDS: MORPHINE SULFATE 4 MG/ML, 1ML IVPush PRN ×2 (16:18→16:38)
--- NOTE | 2019-09-18 16:50 | NUR ---
dr trinh spoke with dr giovanni watson.
--- NOTE | 2019-09-18 16:53 | NUR ---
PLACED PATIENT ON A AIR MATRESS FOR COMFORT. PT MEDICATED FOR PAIN. VS STABLE. CALL LIGHT IN PLACE. WILL CONTINUE TO MONITOR.
[2019-09-18] MEDS ORDERED: FUROSEMIDE 40 MG/4 ML IV ONE (17:00)
[2019-09-18] MEDS ORDERED: FUROSEMIDE 40 MG/4 ML ONE (17:15)
[2019-09-18] MEDS ORDERED: SODIUM CHLORIDE FLUSH 10ML SYR IVF PRN (17:30)
--- NOTE | 2019-09-18 17:59 | NUR ---
REPORT GIVEN TO YISEL GRULLON. PLAN OF CARE DISCUSSED
[2019-09-18 19:22] VITALS: BP 137/68
[2019-09-18] MEDS ORDERED: ENOXAPARIN 30 MG/0.3 ML SQ SCH (20:30)
[2019-09-18] MEDS ORDERED: ACETAMINOPHEN 325 MG TABLET PO PRN (20:30)
[2019-09-18] MEDS ORDERED: TEMAZEPAM 15 MG CAPSULE PO PRN (20:30)
[2019-09-18] MEDS ORDERED: LISINOPRIL 10 MG TABLET PO SCH (21:00)
[2019-09-18] MEDS: SODIUM CHLORIDE FLUSH 10ML SYR IVF SCH (21:00)
[2019-09-18] MEDS ORDERED: WARFARIN 2 MG TABLET PO-COUM ONE (21:00)
[2019-09-18 21:10] LABS: MICROSCOPIC AUTO
[2019-09-18 21:12] LABS: CULTURE INDICATED? NO
[2019-09-18] MEDS: INSULIN LISPRO 100 UNITS/ML, PEN SQ-INSULIN SCH (21:13)
[2019-09-18] MEDS: NICOTINE 21 MG/24 HR PATCH.TD24 TD SCH (22:33)
[2019-09-18] MEDS: PANTOPROZOLE 40MG TABLET PO SCH (22:34)
[2019-09-18] MEDS: ALLOPURINOL 100 MG TABLET PO SCH (22:35)
[2019-09-18] MEDS: morphine SULFATE 10 MG/ML, 1ML IVPush PRN (22:35)
[2019-09-18] MEDS: ATORVASTATIN 10 MG TABLET PO SCH (22:35)
[2019-09-18] MEDS ORDERED: INSU100V13 SC (22:54)
[2019-09-19] VITALS (7 sets, daily range): BP systolic 127–172; BP diastolic 73–89
[2019-09-19] MEDS: LEVOTHYROXINE 88 MCG TABLET PO SCH (05:05)
[2019-09-19 05:36] LABS: BASOPHILS # (AUTO) 0.06 x10^3/uL (0-0.1); BASOPHILS % (AUTO) 1 % (0-1); EOSINOPHILS # (AUTO) 0.22 x10^3/uL (0-0.4); EOSINOPHILS % (AUTO) 4 % (1-7); LYMPHOCYTES # (AUTO) 1.44 x10^3/uL (1-3.4); LYMPHOCYTES % (AUTO) 26 % (22-44); MD NO; MEAN CORPUSCULAR HEMOGLOBIN 23.4 pg (27.5-34.5); MEAN CORPUSCULAR HGB CONC 30.8 g/dL (33.2-36.2); MEAN CORPUSCULAR VOLUME 75.8 fL (81-97); MEAN PLATELET VOLUME 8.1 fL (7.4-10.4); MONOCYTES # (AUTO) 0.55 x10^3/uL (0.2-0.8); MONOCYTES % (AUTO) 10 % (2-9); NEUTROPHILS # (AUTO) 3.24 x10^3/uL (1.8-6.8); NEUTROPHILS % (AUTO) 59 % (42-75); PLATELET COUNT 209 x10^3/uL (130-400); RED CELL DISTRIBUTION WIDTH 20.9 % (9.4-14.8)
[2019-09-19 05:42] LABS: INTERNATIONAL NORMALIZED RATIO 1.87 (0.93-1.1); PROTHROMBIN TIME 19.9 Seconds (9.6-11.5)
[2019-09-19 05:58] LABS: ANION GAP 3 mmol/L (5-15); CALCIUM 8.8 mg/dL (8.5-10.1); CHLORIDE 107 mmol/L (98-107); CREATININE 1.45 mg/dL (0.7-1.3)
[2019-09-19] MEDS: INSULIN LISPRO 100 UNITS/ML, PEN SQ-INSULIN SCH ×4 (08:47→20:50)
[2019-09-19] MEDS: FUROSEMIDE 20 MG/2 ML IV SCH ×2 (08:48→16:35)
[2019-09-19] MEDS: PANTOPROZOLE 40MG TABLET PO SCH ×2 (08:48→20:49)
[2019-09-19] MEDS: SPIRONOLACTONE 50 MG TABLET PO SCH (08:48)
[2019-09-19] MEDS: SODIUM CHLORIDE FLUSH 10ML SYR IVF SCH ×2 (08:49→20:50)
[2019-09-19] MEDS: LISINOPRIL 10 MG TABLET PO SCH (08:49)
[2019-09-19] MEDS: CITALOPRAM 20 MG TABLET PO SCH (08:49)
[2019-09-19] MEDS ORDERED: MAGNESIUM SULFATE PMX 2GM/50ML 50 ML IV ONE (11:00)
[2019-09-19] MEDS: morphine SULFATE 10 MG/ML, 1ML IVPush PRN ×2 (13:37→21:07)
[2019-09-19] MEDS: GABAPENTIN 300 MG CAPSULE PO SCH ×2 (16:35→20:49)
[2019-09-19] MEDS ORDERED: WARFARIN 2 MG TABLET PO-COUM ONE (18:00)
[2019-09-19] MEDS: CARVEDILOL 6.25 MG TABLET PO SCH (18:45)
[2019-09-19] MEDS: ATORVASTATIN 10 MG TABLET PO SCH (20:49)
[2019-09-19] MEDS: NICOTINE 21 MG/24 HR PATCH.TD24 TD SCH (20:49)
[2019-09-19] MEDS: ALLOPURINOL 100 MG TABLET PO SCH (20:49)
[2019-09-19] MEDS: ENOXAPARIN 40 MG/0.4 ML SQ SCH (20:49)
[2019-09-20 03:59] VITALS: BP 151/92
[2019-09-20 05:34] LABS: INTERNATIONAL NORMALIZED RATIO 2.07 (0.93-1.1); PROTHROMBIN TIME 22.1 Seconds (9.6-11.5)
[2019-09-20 05:41] LABS: LDL/HDL RATIO 3.3 (0.5-3.0)
[2019-09-20 05:50] VITALS: BP 169/82
[2019-09-20] MEDS: morphine SULFATE 10 MG/ML, 1ML IVPush PRN (06:14)
[2019-09-20] MEDS: CARVEDILOL 6.25 MG TABLET PO SCH ×2 (06:14→17:17)
[2019-09-20] MEDS: LEVOTHYROXINE 88 MCG TABLET PO SCH (06:15)
[2019-09-20] MEDS: INSULIN LISPRO 100 UNITS/ML, PEN SQ-INSULIN SCH ×4 (07:00→20:51)
[2019-09-20 07:57] VITALS: BP 129/66
[2019-09-20] MEDS: PANTOPROZOLE 40MG TABLET PO SCH ×2 (08:14→20:51)
[2019-09-20] MEDS: LISINOPRIL 10 MG TABLET PO SCH (08:14)
[2019-09-20] MEDS: GABAPENTIN 300 MG CAPSULE PO SCH ×3 (08:14→20:51)
[2019-09-20] MEDS: CITALOPRAM 20 MG TABLET PO SCH (08:14)
[2019-09-20] MEDS: SPIRONOLACTONE 50 MG TABLET PO SCH (08:14)
[2019-09-20] MEDS: SODIUM CHLORIDE FLUSH 10ML SYR IVF SCH ×2 (08:15→20:51)
[2019-09-20] MEDS: FUROSEMIDE 20 MG/2 ML IV SCH (08:15)
[2019-09-20] MEDS ORDERED: IRON DEXTRAN COMPLEX 25 MG in SODIUM CHLORIDE 0.9% 50 ML IV ONE (13:00)
[2019-09-20] MEDS ORDERED: EPINEPHRINE 1 MG/ML, 1ML IM PRN (13:00)
[2019-09-20 13:37] VITALS: BP 131/63
[2019-09-20] MEDS ORDERED: IRON DEXTRAN COMPLEX 1,550 MG in SODIUM CHLORIDE 0.9% 250 ML IV ONE (14:00)
[2019-09-20] MEDS: PRAMIPEXOLE 0.5MG TABLET PO PRN (14:54)
[2019-09-20] MEDS ORDERED: WARFARIN 3 MG TABLET PO-COUM ONE (18:00)
[2019-09-20] MEDS: ALLOPURINOL 100 MG TABLET PO SCH (20:51)
[2019-09-20] MEDS: ENOXAPARIN 40 MG/0.4 ML SQ SCH (20:51)
[2019-09-20] MEDS: ATORVASTATIN 10 MG TABLET PO SCH (20:51)
[2019-09-20] MEDS: NICOTINE 21 MG/24 HR PATCH.TD24 TD SCH (20:57)
[2019-09-20 21:58] VITALS: BP 137/77
[2019-09-21 00:03] VITALS: BP 150/80
[2019-09-21 05:06] LABS: INTERNATIONAL NORMALIZED RATIO 2.2 (0.93-1.1); PROTHROMBIN TIME 23.5 Seconds (9.6-11.5)
[2019-09-21 06:11] VITALS: BP 154/86
[2019-09-21] MEDS: CARVEDILOL 6.25 MG TABLET PO SCH (06:13)
[2019-09-21] MEDS: LEVOTHYROXINE 88 MCG TABLET PO SCH (06:14)
[2019-09-21 06:53] VITALS: BP 169/85
[2019-09-21] MEDS ORDERED: FUROSEMIDE 40 MG TABLET PO SCH (07:30)
[2019-09-21] MEDS: INSULIN LISPRO 100 UNITS/ML, PEN SQ-INSULIN SCH ×2 (07:47→12:37)
[2019-09-21] MEDS: SPIRONOLACTONE 50 MG TABLET PO SCH (08:18)
[2019-09-21] MEDS: PANTOPROZOLE 40MG TABLET PO SCH (08:18)
[2019-09-21] MEDS: LISINOPRIL 10 MG TABLET PO SCH (08:18)
[2019-09-21] MEDS: GABAPENTIN 300 MG CAPSULE PO SCH ×2 (08:18→16:44)
[2019-09-21] MEDS: CITALOPRAM 20 MG TABLET PO SCH (08:19)
[2019-09-21] MEDS: SODIUM CHLORIDE FLUSH 10ML SYR IVF SCH (08:19)
[2019-09-21] MEDS ORDERED: FURO40TA6 PO (13:19)
[2019-09-21] MEDS ORDERED: CARV6.2512 PO (13:19)
[2019-09-21] MEDS ORDERED: NICO-487 TD (13:19)
[2019-09-21] MEDS ORDERED: LEVO88TA2 PO (13:19)
[2019-09-21] MEDS ORDERED: SPIR50TA PO (13:19)
[2019-09-21] MEDS ORDERED: LISI-167 PO (13:19)
[2019-09-21 13:44] VITALS: BP 166/92
[2019-09-21] MEDS: PRAMIPEXOLE 0.5MG TABLET PO PRN (13:57)
[2019-09-21] MEDS ORDERED: WARFARIN 3 MG TABLET PO-COUM ONE (18:00)
== END 2019-09-21 16:57 | disposition home or self-care (01) | DRG 291 ==
LOC: ED 14:34 → EDIP 17:02 → 4WST 18:06
PROVIDERS: ADMIT Internal Medicine; ATTEND Internal Medicine
DX: I13.0 Hypertensive heart and chronic kidney disease with heart failure and stage 1 through stage 4 chronic kidney disease, or unspecified chronic kidney disease (principal); J96.20 Acute and chronic respiratory failure, unspecified whether with hypoxia or hypercapnia; D68.8 Other specified coagulation defects; I50.811 Acute right heart failure; I27.23 Pulmonary hypertension due to lung diseases and hypoxia; J44.9 Chronic obstructive pulmonary disease, unspecified; E11.22 Type 2 diabetes mellitus with diabetic chronic kidney disease; Z99.81 Dependence on supplemental oxygen; D50.9 Iron deficiency anemia, unspecified; D63.1 Anemia in chronic kidney disease; E03.9 Hypothyroidism, unspecified; E78.5 Hyperlipidemia, unspecified; F17.210 Nicotine dependence, cigarettes, uncomplicated; F32.9 Major depressive disorder, single episode, unspecified; G89.4 Chronic pain syndrome; I25.10 Atherosclerotic heart disease of native coronary artery without angina pectoris; I25.2 Old myocardial infarction; N18.2 Chronic kidney disease, stage 2 (mild); Z66 Do not resuscitate; Y92.89 Other specified places as the place of occurrence of the external cause; R27.0 Ataxia, unspecified; T45.515A Adverse effect of anticoagulants, initial encounter; E11.42 Type 2 diabetes mellitus with diabetic polyneuropathy; Z96.653 Presence of artificial knee joint, bilateral; Z96.642 Presence of left artificial hip joint; Z79.01 Long term (current) use of anticoagulants; Z79.4 Long term (current) use of insulin; Z85.51 Personal history of malignant neoplasm of bladder; Z85.828 Personal history of other malignant neoplasm of skin; Z86.72 Personal history of thrombophlebitis
CPT/HCPCS: 36415; 71045; 80048; 80053; 80061; 81001; 82962; 83036; 83540; 83550; 83605; 83735; 83880; 84436; 84443; 84484; 85025; 85610; 93005; 93306; 96374; 96375; G0378; J1650; J1750; J1940; J1815; J2270; J3475; J7050